=== PATIENT | female | born 1985 | race Caucasian/White ===

== ENCOUNTER 2016-10-09 14:41 | Emergency (ER) | payer SELFPAY ==
[~2016-10-09] VITALS: Ht 172.7 cm; Wt 59.0 kg
[2016-10-09 14:41] VITALS: BP 100/72
--- NOTE | 2016-10-09 16:53 | NUR ---
NO APPARENT CHANGE IN CONDITION, URINE TO LAB FOR PREG TEST, X-RAY ORDERED AND WAITING FOR PREG TEST RESULT,BACK TO WR TO WAIT FOR ER BED
[2016-10-09] MEDS ORDERED: HYDROCODONE/APAP 5/325MG 1 EACH TABLET ONE (17:19)
[2016-10-09] MEDS ORDERED: HYDROCODONE/APAP 5/325MG 1 EACH TABLET PO ONE (17:30)
== END 2016-10-09 18:27 | disposition home or self-care (01) ==
LOC: ER 14:46
DX: F17.200 Nicotine dependence, unspecified, uncomplicated (principal); S62.142A Displaced fracture of body of hamate [unciform] bone, left wrist, initial encounter for closed fracture; J45.909 Unspecified asthma, uncomplicated; D25.9 Leiomyoma of uterus, unspecified; Z90.89 Acquired absence of other organs; Z88.0 Allergy status to penicillin; Z88.6 Allergy status to analgesic agent; X58.XXXA Exposure to other specified factors, initial encounter; Y93.71 Activity, boxing; Y92.89 Other specified places as the place of occurrence of the external cause; Y99.9 Unspecified external cause status
CPT/HCPCS: 29125; 73090; 73130; 84703; 99284; A4606; Z7610

== ENCOUNTER 2017-01-12 15:43 | Emergency (ER) | payer OTHER ==
[~2017-01-12] VITALS: Ht 167.6 cm; Wt 54.4 kg
[2017-01-12 15:54] VITALS: BP 13/78
[2017-01-12] MEDS ORDERED: IPRATROPIUM NEB FS 0.5 MG/2.5 ML AMPUL.NEB NEB ONE (16:00)
[2017-01-12] MEDS ORDERED: IBUPROFEN 400 MG TABLET PO ONE (16:00)
[2017-01-12] MEDS ORDERED: ALBUTEROL FS 2.5 MG/3 ML VIAL.NEB NEB ONE (16:00)
[2017-01-12] MEDS ORDERED: predniSONE 20 MG TABLET PO ONE (16:00)
[2017-01-12] MEDS ORDERED: predniSONE 20 MG TABLET ONE (16:02)
[2017-01-12] MEDS ORDERED: IBUPROFEN 400 MG TABLET ONE (16:02)
[2017-01-12] MEDS ORDERED: IPRATROPIUM NEB FS 0.5 MG/2.5 ML AMPUL.NEB ONE (16:06)
[2017-01-12] MEDS ORDERED: ALBUTEROL FS 2.5 MG/0.5 ML VIAL.NEB ONE (16:06)
== END 2017-01-12 16:47 | disposition home or self-care (01) ==
LOC: ER 15:46
DX: J45.901 Unspecified asthma with (acute) exacerbation (principal); R07.89 Other chest pain; F17.200 Nicotine dependence, unspecified, uncomplicated; D25.9 Leiomyoma of uterus, unspecified; Z88.0 Allergy status to penicillin; Z88.6 Allergy status to analgesic agent; Z90.89 Acquired absence of other organs
CPT/HCPCS: 71010; 94640; 99283; 99406; A4606; J7512; Z7610

== ENCOUNTER 2017-03-26 14:56 | Emergency (ER) | payer OTHER ==
[~2017-03-26] VITALS: Ht 172.7 cm; Wt 61.2 kg
[2017-03-26 14:56] VITALS: BP 102/69
[2017-03-26] MEDS ORDERED: IPRATROPIUM NEB FS 0.5 MG/2.5 ML AMPUL.NEB ONE (15:46)
[2017-03-26] MEDS ORDERED: ALBUTEROL FS 2.5 MG/3 ML VIAL.NEB ONE (15:46)
[2017-03-26] MEDS ORDERED: predniSONE 20 MG TABLET ONE (15:51)
[2017-03-26] MEDS ORDERED: IPRATROPIUM NEB FS 0.5 MG/2.5 ML AMPUL.NEB NEB ONE (16:00)
[2017-03-26] MEDS ORDERED: predniSONE 20 MG TABLET PO ONE (16:00)
[2017-03-26] MEDS ORDERED: ALBUTEROL FS 2.5 MG/3 ML VIAL.NEB NEB ONE (16:00)
[2017-03-26] MEDS ORDERED: IBUPROFEN 600 MG TABLET PO ONE ×2 (16:25→16:30)
[2017-03-26] MEDS ORDERED: ACETAMINOPHEN 325 MG TABLET PO ONE (16:30)
--- NOTE | 2017-03-26 17:41 | NUR ---
ORAL TEMP 98.2
== END 2017-03-26 17:54 | disposition home or self-care (01) ==
LOC: ER 14:57
DX: J11.1 Influenza due to unidentified influenza virus with other respiratory manifestations (principal); J45.909 Unspecified asthma, uncomplicated; F17.200 Nicotine dependence, unspecified, uncomplicated; Z88.0 Allergy status to penicillin; Z79.82 Long term (current) use of aspirin; Z90.89 Acquired absence of other organs
CPT/HCPCS: 71045; 87804 ×2; 94640; 99285; A4606; J7512; Z7610; 87400

== ENCOUNTER 2022-12-11 22:52 | Emergency (ER) | payer OTHER ==
[~2022-12-11] VITALS: Ht 172.7 cm; Wt 59.0 kg
[2022-12-11 23:41] LABS: BASOPHILS % (AUTO) 0.3 % (0.0-2.0); EOSINOPHILS # (AUTO) 0.2 K/uL (0.0-0.7); EOSINOPHILS % (AUTO) 1.6 % (0.0-6.0); HEMATOCRIT 38 % (33-45); HEMOGLOBIN 12.6 g/dL (11.5-14.8); LYMPHOCYTES # (AUTO) 1.9 K/uL (0.8-4.8); LYMPHOCYTES % (AUTO) 18.4 % (20.0-44.0); MEAN CORPUSCULAR HEMOGLOBIN 31 PG (26.0-33.0); MEAN CORPUSCULAR HGB CONC 33 g/dl (31.0-36.0); MEAN CORPUSCULAR VOLUME 93 fL (82-100); MONOCYTES # (AUTO) 0.7 K/uL (0.1-1.30); MONOCYTES % (AUTO) 6.9 % (2.0-12.0); NEUTROPHILS # (AUTO) 7.7 K/uL (1.8-8.9); NEUTROPHILS % (AUTO) 72.8 % (43.0-81.0); PLATELET COUNT (AUTO) 172 K/uL (150-450); RED CELL DISTRIBUTION WIDTH 13.9 % (11.5-15.0); WHITE BLOOD COUNT (AUTO) 10.6 K/uL (4.3-11.0)
[2022-12-11 23:51] LABS: CALCIUM, SERUM 9.2 mg/dL (8.5-10.1); CREATININE 0.8 mg/dL (0.6-1.3); POTASSIUM 3.6 mmol/L (3.5-5.1)
[2022-12-11 23:56] LABS: ALBUMIN 3.8 g/dL (3.4-5.0); BILIRUBIN,DIRECT 0.1 mg/dL (0.0-0.2); BILIRUBIN,TOTAL 0.3 mg/dL (0.2-1.0); TOTAL PROTEIN, SERUM 6.6 g/dL (6.4-8.2)
[2022-12-12 01:42] VITALS: BP 121/80; TEMP 98.8; O2SAT 99
== END 2022-12-12 01:42 | disposition home or self-care (01) ==
LOC: ER 23:13
DX: K29.70 Gastritis, unspecified, without bleeding (principal); F10.129 Alcohol abuse with intoxication, unspecified; F17.210 Nicotine dependence, cigarettes, uncomplicated; J45.909 Unspecified asthma, uncomplicated; F41.9 Anxiety disorder, unspecified; Z90.89 Acquired absence of other organs; Z90.49 Acquired absence of other specified parts of digestive tract; Z88.0 Allergy status to penicillin; Z88.8 Allergy status to other drugs, medicaments and biological substances; Y90.9 Presence of alcohol in blood, level not specified
CPT/HCPCS: 36415; 80048-TC; 80076-TC; 83690-TC; 85025-TC